=== PATIENT | female | born 1970 | race Caucasian/White ===

== ENCOUNTER 2016-05-13 19:31 | Emergency (ER) | payer MEDICAID ==
[2016-05-13 21:10] LABS: % BASOPHILS 0.4 % (0.0-2.0); % EOSINOPHILS 2.8 % (0.0-5.0); % LYMPHOCYTES 23.5 % (20.0-50.0); % MONOCYTES 9.4 % (2.0-10.0); % NEUTROPHILS 63.9 % (40.0-80.0); HEMATOCRIT 36.8 % (35.0-45.0); HEMOGLOBIN 12.7 gm/dL (11.7-15.5); MEAN CELL VOLUME 88.6 fl (81-100); MEAN CORPUSCULAR HEMOGLOBIN 30.4 pg (27.0-31.0); MEAN CORPUSCULAR HGB CONC 34.4 pg (28.0-36.0); MEAN PLATELET VOLUME 9.5 fl; NEUTROPHILE ABSOLUTE 4.5 Th/cmm (1.8-8.0); PLATELET COUNT 175 Th/cmm (150-400); RED BLOOD COUNT 4.16 Mil/cmm (3.80-5.10); RED CELL DISTRIBUTION WIDTH 12.3 % (11.5-20.0)
[2016-05-13 21:21] LABS: URINE BILIRUBIN NEGATIVE (NEGATIVE); URINE BLOOD NEGATIVE (NEGATIVE); URINE COLOR AMBER; URINE GLUCOSE (UA) NEGATIVE (NEGATIVE); URINE KETONE TRACE mg/dL (NEGATIVE); URINE PROTEIN NEGATIVE (NEGATIVE); URINE RBC 0-1 /hpf (0-5); URINE UROBILINOGEN 0.2 E.U./dL (0.2 - 1.0); URINE WBC 0-2 /hpf (0-5)
[2016-05-13 21:22] LABS: URINE BACTERIA FEW /hpf (NONE SEEN); URINE EPITHELIAL CELLS OCCASIONAL /lpf (FEW)
[2016-05-13 21:25] LABS: BUN - UREA NITROGEN 20 mg/dL (7-25); CALCIUM SERUM 9.8 mg/dL (8.6-10.3); CHLORIDE 107 mEq/L (98-107); GLUCOSE 94 mg/dL (70-105); SODIUM SERUM 137 mEq/L (136-145)
--- NOTE | 2016-05-13 22:03 | ED Physician Chart ---
Chief Complaint/HPI - Patient Information Date Seen:: 05/13/16 Time Seen:: 21:45 Chief Complaint:: Dyuria for one week. History of Present Illness:: Pt is [place] speaking. Interpretation is provided by Claudia busby Grabhouse. Pt has had burning sensation with urination with slight pink color urine. Pt has had urinary frequency and urgency. No fever. No N/V/D. No vaginal bleeding or discharge. Allergies:: Allergies Allergy/AdvReac Type Severity Reaction Status Date / Time No Known Allergies Allergy Verified 02/04/16 12:02 Vitals:: Vital Signs - 8 hr 05/13/16 19:40 Temp 98.0 F HR 80 RR 18 BP 128/84 O2 Sat % 99 Historian:: Patient Family MD/PCP:: Dr. Souza LMP:: 04/30/2016 Review:: Nurse's Note Reviewed Review of Systems - Review of Systems General/Constitutional: No fever, No chills, No weight loss, No weakness, No diaphoresis, No edema, No loss of appetite Skin: No skin lesions, No rash, No bruising Head: No headache, No light-headedness Eyes: No loss of vision, No pain, No diplopia ENT: Nasal drainage, Sore throat (??) Neck: No neck pain, No swelling, No thyromegaly, No stiffness, No mass noted Cardio Vascular: No chest pain, No palpitations, No PND, No orthopnea, No edema Pulmonary: No SOB, Cough, Sputum (with yellow phlegm), No wheezing GI: No nausea, No vomiting, No diarrhea, No pain, No melena, No hematochezia, No constipation, No hematemesis G/U: Dysuria, Frequency, Hematuria (?) Cardiovascular Physician Assistant: No vaginal discharge, No abnormal vaginal bleed Musculoskeletal: No bone or joint pain, No back pain, No muscle pain Endocrine: No polyuria, No polydipsia Psychiatric: No prior psych history Hematopoietic: No bruising, No lymphadenopathy Allergic/Immuno: No urticaria, No angioedema Neurological: No syncope, No focal symptoms, No weakness, No paresthesia, No headache, No seizure, No dizziness, No confusion, No vertigo Past Medical History - Past Medical History Past Medical History: HTN Family History: HTN ( mother) Social History: Non Smoker, No Alcohol, No Drug Use, , Other (lives with her children) Employment:: unemployed. Surgical History: Cholecystectomy (), other (Tubal ligation '. L wrist surgery and 16.) Psychiatricy History: None Medication: Reviewed Family Medical History - Family Member Mother History Unknown: Yes Ethnicity: Living Status: Still Living Hx Family Cancer: No Hx Family Coronary Artery Disease: Yes Hx Family Congestive Heart Failure: No Hx Family Hypertension: Yes Hx Family Stroke: No Hx Family Diabetes: No Hx Family Seizures: No Father Ethnicity: Unknown Sister History Unknown: Yes Ethnicity: Living Status: Still Living Physical Exam - Physical Examination General/Constitutional: Awake, Well-developed, well-nourished, Alert, No distress, GCS 15, Non-toxic appearing, Ambulatory Other Gen/Cons comments:: Breathes comfortably, speaks clearly, and ambulates without difficulty. Head: Atraumatic Eyes: Lids, conjuctiva normal, PERRL, EOMI Skin: Nl inspection, No rash, No skin lesions, No ecchymosis, Well hydrated, No lymphadenopathy ENMT: TM canals nl, Lips, teeth, gums nl, Oropharynx nl, Tonsils nl Other ENMT comments:: There is slight yellow nasal discharge noticed with mild light yellow postnasal drip. Neck: Nontender, Full ROM w/o pain, No JVD, No nuchal rigidity, No bruit, No mass, No stridor Respiratory: Nl effort/Exclusion, Clear to Auscultation, No Wheeze/Rhonchi/Rales Cardio Vascular: RRR, No murmur, gallop, rubs, NL S1 S2 GI: No tenderness/rebounding/guarding, No organomegaly, No hernia, Normal BS's, Nondistended, No mass/bruits, No McBurney tenderness Other GI comments:: Obese but soft. : No CVA tenderness Other comments:: Pt declined pelvic exam despite indications, etc. had been explained. Pt preferred to see PCP Dr. Souza tomorrow for the exam and further evaluation. Extremities: No tenderness or effusion, Full ROM, normal strength in all extremities, No edema, Normal digits & nails Neuro/Psych: Alert/oriented (oriented x 3.), Mood normal, Normal gait, No focal deficits Labs/Radiology/EKG Results - Lab Results Results: Laboratory Tests 05/13/16 05/13/16 05/13/16 20:45 20:45 21:01 WBC 7.0 RBC 4.16 Hgb 12.7 Hct 36.8 MCV 88.6 MCH 30.4 MCHC Differential 34.4 RDW 12.3 Plt Count 175 MPV 9.5 Neutrophils % 63.9 Lymphocytes % 23.5 Monocytes % 9.4 Eosinophils % 2.8 Basophils % 0.4 Sodium Potassium Chloride Carbon Dioxide Anion Gap BUN Creatinine Est GFR ( Amer) Est GFR (Non-Af Amer) BUN/Creatinine Ratio Glucose Calcium Urine Source RANDOM Urine Color GLORIA Urine Clarity CLEAR Urine pH 6.0 Ur Specific [place] 1.025 Urine Protein NEGATIVE Urine Glucose (UA) NEGATIVE Urine Ketones TRACE Urine Blood NEGATIVE Urine Nitrate NEGATIVE Urine Bilirubin NEGATIVE Urine Urobilinogen 0.2 Ur Leukocyte Esterase NEGATIVE Urine RBC 0-1 Urine WBC 0-2 Ur Epithelial Cells OCCASIONAL Urine Bacteria FEW Urine Test NEGATIVE 05/13/16 21:01 WBC RBC Hgb Hct MCV MCH MCHC Differential RDW Plt Count MPV Neutrophils % Lymphocytes % Monocytes % Eosinophils % Basophils % Sodium 137 Potassium 5.0 Chloride 107 Carbon Dioxide 25.0 Anion Gap 10.0 BUN 20 Creatinine 1.0 Est GFR ( Amer) > 60.0 Est GFR (Non-Af Amer) > 60.0 BUN/Creatinine Ratio 20.0 Glucose 94 Calcium 9.8 Urine Source Urine Color Urine Clarity Urine pH Ur Specific [place] Urine Protein Urine Glucose (UA) Urine Ketones Urine Blood Urine Nitrate Urine Bilirubin Urine Urobilinogen Ur Leukocyte Esterase Urine RBC Urine WBC Ur Epithelial Cells Urine Bacteria Urine Test ED Septic Shock - . Is Septic Shock (SBP<90, OR Lactate>4 mmol\L) present?: No - <6hrs of presentation: Vital Signs: Vital Signs - 8 hr 05/13/16 19:40 Temp 98.0 F HR 80 RR 18 BP 128/84 O2 Sat % 99 Reassessment (Disposition) - Reassessment Reassessment:: 2220 Pt remains stable. Lab findings have been reviewed with pt. Pt requests to go home now and will follow with PCP Dr. Souza tomorrow for follow up and pelvic exam. Aftercare instructions given. - Diagnosis Diagnosis:: Acute sinusitis, stable. Dysuria with noraml urinalysis, unknown etiology. Stable. Pt prefers to be followed by PCP Dr. Souza tomorrow for pelvic exam and further evaluation. - Aftercare/Follow up Instructions Aftercare/Follow-Up Instructions:: Refer to Discharge Instructions Notes:: Push oral fluid. May take Sudafed as directed. May take Tylenol 500 mg tab one tab po q4-6h prn for pain or fever. F/U with PCP Dr. Souza as preferred by pt in one day for recheck and pelvic exam. Return to ER immediately if condition worsens or if any further questions/ problems. Medication Prescribed:: Bactrim DS one tab po q12h for 14 days. D-28 R-0 - Patient Disposition Discharge/Transfer:: Home Time:: 22:35 Condition at Disposition:: Stable ED Discharge Plan - Patient Disposition Admit/Discharge/Transfer: PT DISCHARGED HOME Instructions: Sinusitis, [id number] Additional Instructions: follow up with your primary medical doctor BELINDA take prescribed medications as ordered
== END 2016-05-13 22:20 | disposition home or self-care (01) ==
LOC: ER 19:31
DX: R30.0 Dysuria (principal); J01.90 Acute sinusitis, unspecified
CPT/HCPCS: 36415-UA; 80048-TC; 81001-TC; 81025-TC; 85025-TC; Z7502